=== PATIENT | female | born 1970 | race Caucasian/White ===

== ENCOUNTER 2017-10-27 06:23 | Day surgery (SDC) | payer SELFPAY ==
[2017-10-20 15:56] VITALS: BMI 19.9
[2017-10-27] MEDS ORDERED: PROPOFOL 20 ML ONE (07:41)
[2017-10-27] MEDS ORDERED: fentaNYL CITRATE 250 MCG/5 ML VIAL ONE (07:41)
[2017-10-27] MEDS ORDERED: MIDAZOLAM HCL 2 MG/2 ML SINGLE DOSE VIAL ONE (07:42)
[2017-10-27] MEDS ORDERED: SUCCINYLCHOLINE CHLORIDE 200 MG/10 ML VIAL ONE (07:42)
[2017-10-27] MEDS ORDERED: LIDOCAINE HCL/PF 2% SDV 5ML VIAL ONE (07:44)
[2017-10-27] MEDS ORDERED: LIDOCAINE 1%/EPI 1:100000 (20 ML MULTI DOSE VIAL) ONE (07:44)
[2017-10-27] MEDS ORDERED: DEXAMETHASONE SOD PHOSPHATE 4 MG/1 ML VIAL ONE (10:40)
[2017-10-27] MEDS ORDERED: ONDANSETRON 4 MG/2 ML VIAL ONE (10:40)
[2017-10-27] MEDS ORDERED: ACETAMINOPHEN INJECTION 100 ML IVPB ONE (11:09)
[2017-10-27] MEDS ORDERED: ROCURONIUM BROMIDE 50 MG/5 ML VIAL ONE (11:11)
[2017-10-27] MEDS ORDERED: GLYCOPYRROLATE 0.2 MG/1 ML VIAL ONE (12:28)
[2017-10-27] MEDS ORDERED: NEOSTIGMINE METHYLSULFATE 0.5 MG/ML - 10 ML MDV ONE (12:29)
[2017-10-27] MEDS ORDERED: BUPIVACAINE HCL/PF 2.5 MG/ML - 30 ML VIAL IJ ONE (12:58)
[2017-10-27] MEDS ORDERED: FAMOTIDINE 20 MG/50 ML IVPB 20 MG/50 ML MG IVPB ONE (13:47)
[2017-10-27] MEDS ORDERED: ONDANSETRON 4 MG/2 ML VIAL IVPB PRN (13:52)
[2017-10-27] MEDS ORDERED: oxyCODONE HCL 5 MG TABLET PO PRN ×2 (13:52→15:17)
--- NOTE | 2017-10-27 13:55 | OP ---
Operative Note - Note: Operative Date: 10/27/17 Pre-Operative Diagnosis: breast ptosis Operation: bilateral breast reduction Findings: above Post-Operative Diagnosis: Same as Pre-op Surgeon: Chaim Fisher Anesthesia: General Operative Report Dictated: Yes
[2017-10-27] MEDS ORDERED: LACTATED RINGERS SOLUTION 1,000 ML IV SCH (14:00)
[2017-10-27] MEDS ORDERED: ONDANSETRON 4 MG/2 ML VIAL IVPUSH ONE (14:45)
[2017-10-27 16:02] VITALS: TEMP 98.4
[2017-10-27 16:45] VITALS: BP 116/50; PULSE 52
--- NOTE | 2017-10-27 17:31 | OP ---
DATE OF OPERATION: 10/27/2017 TITLE OF PROCEDURE: Bilateral mastopexy/breast reduction. POSTOPERATIVE DIAGNOSIS: Bilateral mastopexy/breast reduction. ATTENDING SURGEON: Chaim Fisher M.D. ASSISTANTS: None. ANESTHESIA: General endotracheal anesthesia. DESCRIPTION OF PROCEDURE: Patient is marked in the holding area preoperatively. She is awake, aware of all incisions and resulting scars. Nipples are sited at 20 cm from the sternal notch bilaterally. A modified Nogueira-type pattern is used with circumvertical modification. The patient is given a gram of Ancef preoperatively. Sequential compression stockings and DENISE hose are applied in the holding area. Brought to the operating room, placed in a supine position. Position is carefully checked by surgical and anesthesia teams. All pressure points are carefully padded. She is prepped and draped in standard surgical fashion. A timeout is called. Patient, procedure, incision sites are verified. At this point, attention is first directed toward the left side where the nipple areolar is traced with a 38-mm cookie cutter which is the actual size of the areola on . The areola is too small to be reduced. The skin within the skin patter with the exception of the nipple areola is de-epithelialized and skin flaps are elevated medially and laterally. The nipple is preserved on a bipedicle both superior and inferior. The tissues are mobilized superiorly, and skin is tailor-tacked with sivan. Attention is then directed toward the contralateral side, where a mirror image procedure is performed. The patient is brought to a seated, upright position where tailor tacking is performed with sivan to achieve symmetric result. Once this is done, markings are made to correspond to the tailor tacked skin tension. The patient is brought back to a supine position. The sivan are removed. The skin markings along the vertical and horizontal limbs are excised with scissors, and the periareolar skin is de-epithelialized. Hemostasis is meticulously achieved. The inverted T-point is closed with a half-buried mattress 2-0 nylon suture. The medial and lateral pillars are closed with buried 3-0 Monocryl suture followed by a series of interrupted buried deep dermal 3-0 Monocryl suture applied followed by a running subcuticular 3-0 Monocryl suture. The horizontal limb is closed with a series of interrupted buried deep dermal 3-0 Monocryl suture, followed by a running subcuticular 3-0 Monocryl suture. The nipple areola is then closed with a series of interrupted buried 4-0 Monocryl suture followed by running subcuticular 4-0 Monocryl suture. The same closure pattern is performed on the contralateral side. The end point is symmetric, breast size and symmetry. Breast tissue had been resected the inferomedial, inferolateral segments of the breast and are sent for tissue pathology. Nipples are pink and viable at the end of the procedure. Hemostasis had been assured. Patient is awoken from anesthesia, transferred to recovery without complication. Jaqueline [id number]
--- NOTE | 2017-10-29 14:18 | PATH ---
Surgical Pathology Report Patient Name: SHANA TREJO [facility]. Rec. #: [id number] /Age/Gender: 1970 (Age: 47) / F Account: [id number] Location: [facility] AMBUL[facility] Taken: 10/27/2017 Received: 10/27/2017 Reported: 10/29/2017 Physicians: Chaim Fisher Specimen(s) Received A: LEFT BREAST SKIN AND TISSUE B: RIGHT BREAST SKIN AND TISSUE Clinical History Cosmetic Final Diagnosis A. BREAST TISSUE AND SKIN, LEFT, REDUCTION: BENIGN BREAST TISSUE. SKIN WITH NO PATHOLOGIC FINDINGS. B. BREAST TISSUE AND SKIN, RIGHT, REDUCTION: BENIGN BREAST TISSUE. SKIN WITH NO PATHOLOGIC FINDINGS. Electronically Signed Virgie Norman M.D. Gross Description A. Received in formalin labeled "left breast skin and tissue," is a 13 g, 6.0 x 5.0 x 0.7 cm aggregate of multiple unoriented portions of fibroadipose tissue and armendariz, unremarkable skin. Sectioning reveals foci of white fibrous tissue. Missing Persons Investigator sections are submitted in 2 cassettes. B. Received in formalin labeled "right breast skin and tissue,"is a 17 g, 6.5 x 5.3 x 1.5 cm aggregate of multiple portions of unoriented fibroadipose tissue and armendariz, unremarkable skin. Sectioning reveals foci of dense white fibrous tissue. Missing Persons Investigator sections are submitted in 2 cassettes. 10/28/201710/28/2017
== END 2017-10-27 16:40 | disposition home or self-care (01) ==
LOC: FASU 06:23
PROVIDERS: ATTEND Plastic Surgery
PROC: 0H0V0ZZ Alteration of Bilateral Breast, Open Approach (ICD-10-PCS; 2017-10-27)
PROC: 0H0V0ZZ Alteration of Bilateral Breast, Open Approach (ICD-10-PCS; principal; 2017-10-27 11:03)
DX: Z41.1 Encounter for cosmetic surgery (principal)
CPT/HCPCS: 84703; 88304-TC; 94760; J0131